=== PATIENT | female | born 1985 | race Caucasian/White ===

== ENCOUNTER 2022-02-03 04:02 | Day surgery (SDC) | payer OTHER ==
[2022-01-30 15:10] VITALS: BMI 33.3
[~2022-02-03 04:02] MED LIST: BUPIVACAINE HCL/PF 0.25% (2.5MG/ML) 10 ML VIAL IJ ONE; DEXAMETHASONE SOD PHOSPHATE 10 MG/1 ML VIAL IVPUSH ONE
[2022-02-03] MEDS ORDERED: MIDAZOLAM HCL 2 MG/2 ML SINGLE DOSE VIAL ONE ×2 (07:18→08:50)
[2022-02-03] MEDS ORDERED: DEXAMETHASONE SOD PHOSPHATE 10 MG/1 ML VIAL ONE (07:27)
[2022-02-03] MEDS ORDERED: LIDOCAINE HCL 1%, 10 MG/ML (20ML VIAL) ONE ×2 (07:27→07:36)
[2022-02-03] MEDS ORDERED: BUPIVACAINE HCL/PF 0.25% (2.5MG/ML) 10 ML VIAL ONE (07:27)
[2022-02-03] MEDS ORDERED: LIDOCAINE HCL/PF 1% SDV 5ML VIAL ONE (07:36)
[2022-02-03] MEDS ORDERED: LIDOCAINE HCL 1% PRESERVATIVE FREE - 30ML VIAL IJ ONE (08:56)
[2022-02-03] MEDS ORDERED: PROPOFOL 20 ML ONE (08:56)
[2022-02-03] MEDS ORDERED: IOHEXOL 180 MG/1 ML ML IJ ONE (08:57)
[2022-02-03] MEDS ORDERED: DEXAMETHASONE SOD PHOSPHATE 10 MG/1 ML VIAL IVPUSH ONE (08:59)
[2022-02-03] MEDS ORDERED: BUPIVACAINE HCL/PF 0.25% (2.5MG/ML) 10 ML VIAL IJ ONE (08:59)
[2022-02-03] MEDS ORDERED: PROMETHAZINE HCL 25 MG/1 ML VIAL IVPUSH PRN (09:09)
[2022-02-03] MEDS ORDERED: ONDANSETRON 4 MG/2 ML VIAL IVPUSH PRN (09:09)
[2022-02-03] MEDS ORDERED: oxyCODONE HCL 5 MG TABLET PO PRN ×2 (09:09)
[2022-02-03] MEDS ORDERED: LACTATED RINGERS SOLUTION 1,000 ML IV SCH (09:15)
[2022-02-03 10:18] VITALS: TEMP 97.8
[2022-02-03 10:56] VITALS: BP 112/65; PULSE 65
== END 2022-02-03 10:53 | disposition home or self-care (01) ==
LOC: JASU-SURG 04:02
PROVIDERS: ATTEND Physical Medicine & Rehabilitation
PROC: 3E0R33Z Introduction of Anti-inflammatory into Spinal Canal, Percutaneous Approach (ICD-10-PCS; 2022-02-03)
PROC: 3E0R3BZ Introduction of Anesthetic Agent into Spinal Canal, Percutaneous Approach (ICD-10-PCS; principal; 2022-02-03 08:00)
DX: M54.16 Radiculopathy, lumbar region (principal); M54.50 Low back pain, unspecified
CPT/HCPCS: 76000-TC-FY; 81025; 94760; J1100